=== PATIENT | male | born 1955 | race Asian ===

== ENCOUNTER 2018-06-13 07:13 | Outpatient (CLI) | payer OTHER | END 2018-06-13 07:17 | disposition short-term general hospital (02) | LOC: AMB 07:13 | DX: M79.605 Pain in left leg (principal); V59.9XXA Occupant (driver) (passenger) of pick-up truck or van injured in unspecified traffic accident, initial encounter; Y93.89 Activity, other specified; Y99.8 Other external cause status | CPT/HCPCS: A0425; A0429 ==

== ENCOUNTER 2018-06-13 07:17 | Emergency (ER) | payer OTHER ==
[~2018-06-13] VITALS: Ht 182.9 cm; Wt 67.1 kg
[2018-06-13 07:20] VITALS: TEMP 97.7
[2018-06-13 09:53] VITALS: BP 146/98
== END 2018-06-13 09:55 | disposition home or self-care (01) ==
LOC: ED 07:17
DX: S70.02XA Contusion of left hip, initial encounter (principal); S80.12XA Contusion of left lower leg, initial encounter; V53.5XXA Driver of pick-up truck or van injured in collision with car, pick-up truck or van in traffic accident, initial encounter
CPT/HCPCS: 99283

== ENCOUNTER 2019-02-28 12:43 | Outpatient (CLI) | payer OTHER ==
[2019-02-28 13:00] LABS: POTASSIUM 4.7 mmol/L (3.6-5.2)
[2019-02-28 13:04] LABS: PLATELET COUNT 234 K/uL (142-355)
== END 2019-02-28 22:07 | disposition home or self-care (01) ==
LOC: LAB 12:43
PROVIDERS: Physician Assistant
DX: I11.9 Hypertensive heart disease without heart failure (principal); E11.65 Type 2 diabetes mellitus with hyperglycemia
CPT/HCPCS: 36415; 80053; 80061; 82306; 84153; 84443; 85027

== ENCOUNTER 2020-02-03 11:31 | Outpatient (CLI) | payer OTHER | END 2020-02-03 19:22 | disposition home or self-care (01) | LOC: RAD 11:31 | DX: M54.16 Radiculopathy, lumbar region (principal) ==

== ENCOUNTER 2020-03-02 09:09 | Outpatient (CLI) | payer OTHER | END 2020-03-03 00:26 | disposition home or self-care (01) | LOC: MRI 09:09 | DX: M54.16 Radiculopathy, lumbar region (principal) ==

== ENCOUNTER 2021-01-27 16:10 | Outpatient (CLI) | payer OTHER | END 2021-01-27 22:20 | disposition home or self-care (01) | LOC: RAD 16:10 | PROVIDERS: ATTEND Nurse Practitioner Family | DX: M54.16 Radiculopathy, lumbar region (principal) ==

== ENCOUNTER 2023-01-19 12:26 | Emergency (ER) | payer OTHER ==
[~2023-01-19] VITALS: Ht 182.9 cm; Wt 112.5 kg
[2023-01-19 13:40] LABS: PLATELET COUNT 232 K/uL (142-355)
[2023-01-19 13:52] LABS: POTASSIUM 3.5 mmol/L (3.6-5.2)
[2023-01-19 15:15] VITALS: BP 142/68; TEMP 98
== END 2023-01-19 15:15 | disposition home or self-care (01) ==
LOC: ED 12:26
PROVIDERS: Family Medicine
DX: M54.10 Radiculopathy, site unspecified (principal); I10 Essential (primary) hypertension; E87.6 Hypokalemia
CPT/HCPCS: 80053; 82550; 84550; 85027; 96372; 99283; J1885; J2930

== ENCOUNTER 2023-06-26 17:24 | Outpatient (CLI) | payer OTHER | END 2023-06-26 19:32 | disposition home or self-care (01) | LOC: RAD 17:24 | PROVIDERS: ATTEND Nurse Practitioner Family | DX: Z11.1 Encounter for screening for respiratory tuberculosis (principal) ==